=== PATIENT | male | born 1980 | race Caucasian/White ===

== ENCOUNTER 2016-07-11 09:18 | Emergency (ER) | payer OTHER ==
[~2016-07-11] VITALS: Ht 165.1 cm; Wt 79.4 kg
[2016-07-11 09:21] VITALS: BP 139/83
--- NOTE | 2016-07-11 09:24 | NUR ---
PT TO BED 3 AT THIS TIME.
--- NOTE | 2016-07-11 09:51 | NUR ---
PATIENT PRESENTS TO ED W/C/O LEFT FOOT PAIN SCALE IS 5 AND RIGHT FOOT PAIN SCALE IS 10 . PT STATES IT STARTED THIS MORNING . DENIES N/V/D; SKIN IS PINK/WARM/DRY; AAOX4 WITH EVEN AND STEADY GAIT; LUNGS CLEAR BL; HR EVEN AND REGULAR; PT DENIES ANY CP, SOB, OR COUGH AT THIS TIME; PATIENT STATES PAIN OF 10/10 AT THIS TIME; VSS; PATIENT POSITIONED FOR COMFORT; HOB ELEVATED; BEDRAILS UP X2; BED DOWN. ER MD MADE AWARE OF PT STATUS.
[2016-07-11] MEDS ORDERED: HYDROcodone/APAP 5/325 MG 1 TAB TAB PO ONE (10:15)
[2016-07-11] MEDS ORDERED: IBUPROFEN 400 MG TAB PO ONE (10:15)
[2016-07-11 11:25] VITALS: BP 112/61
--- NOTE | 2016-07-11 11:25 | NUR ---
Patient discharged with v/s stable. Written and verbal after care instructions given and explained. Patient alert, oriented and verbalized understanding of instructions. Ambulatory with steady gait. All questions addressed prior to discharge. ID band removed. Patient advised to follow up with PMD. Rx of norco, bactrim and naprosyn given. Patient educated on indication of medication including possible reaction and side effects. Opportunity to ask questions provided and answered.
== END 2016-07-11 11:25 | disposition home or self-care (01) ==
LOC: MED 09:18
DX: M79.674 Pain in right toe(s) (principal); R03.0 Elevated blood-pressure reading, without diagnosis of hypertension

== ENCOUNTER 2016-09-06 20:18 | Emergency (ER) | payer OTHER ==
[~2016-09-06] VITALS: Ht 165.1 cm; Wt 81.6 kg
[2016-09-06 20:24] VITALS: BP 112/77
--- NOTE | 2016-09-06 21:20 | NUR ---
TO ER BED 3
--- NOTE | 2016-09-06 21:25 | NUR ---
36Y M C/O OF LOW BACK PAIN FOR DAYS NOW . PAIN 10/10 IN SCALE. NO INJURY NOTED.
[2016-09-06] MEDS ORDERED: KETOROLAC 60 MG/2 ML VIAL IM ONE (22:00)
[2016-09-06 22:25] VITALS: BP 127/75
== END 2016-09-06 22:25 | disposition home or self-care (01) ==
LOC: MED 20:18
DX: S39.012A Strain of muscle, fascia and tendon of lower back, initial encounter (principal); X58.XXXA Exposure to other specified factors, initial encounter; Y93.89 Activity, other specified; Y92.89 Other specified places as the place of occurrence of the external cause; Y99.8 Other external cause status
CPT/HCPCS: 81002; 96372; 99283; J1885

== ENCOUNTER 2018-09-05 08:00 | Emergency (ER) | payer OTHER ==
[~2018-09-05] VITALS: Ht 165.1 cm; Wt 82.1 kg
[2018-09-05 08:12] VITALS: BP 110/69
--- NOTE | 2018-09-05 08:15 | NUR ---
C/O CONSTANT LOWER CENTER BACK PAIN 10/10 RADIATING TO [facility]RIST[facility] FLANKS X1 WEEK. NO OBVIOUS DEFORMITY NOTED. DENIES N/V/D/FEVER, DYSURIA,URINARY FREQUENCY, RECENT INJURY. SKIN IS PINK/WARM/DRY; AAOX4 WITH EVEN AND STEADY GAIT; LUNGS CLEAR BL; HR EVEN AND REGULAR; VSS; PATIENT POSITIONED FOR COMFORT; HOB ELEVATED; BEDRAILS UP X1; BED DOWN. ER MD MADE AWARE OF PT STATUS.
--- NOTE | 2018-09-05 08:15 | NUR ---
PT AMBULATED TO BED 5
--- NOTE | 2018-09-05 08:24 | NUR ---
ERMD AT BEDSIDE
[2018-09-05] MEDS ORDERED: KETOROLAC 30 MG/ML VIAL IM ONE (08:30)
[2018-09-05 09:27] VITALS: BP 110/69
--- NOTE | 2018-09-05 09:27 | NUR ---
Patient discharged with v/s stable. Written and verbal after care instructions given and explained. Patient alert, oriented and verbalized understanding of instructions. Ambulatory with steady gait. All questions addressed prior to discharge. ID band removed. Patient advised to follow up with PMD. Rx of VALIUM & IBUPROFEN given. Patient educated on indication of medication including possible reaction and side effects. Opportunity to ask questions provided and answered.
== END 2018-09-05 09:27 | disposition home or self-care (01) ==
LOC: MED 08:00
DX: M54.5 Low back pain (principal); G89.29 Other chronic pain
CPT/HCPCS: 81002; 96372; 99283; J1885